=== PATIENT | female | born 2000 | race Caucasian/White ===

== ENCOUNTER 2021-04-08 18:41 | Inpatient (IN) | payer OTHER ==
[2021-04-08] VITALS (13 sets, daily range): BP systolic 105–146; BP diastolic 57–105; PULSE 97–126; TEMP 98.1
[~2021-04-08] VITALS: Ht 165.1 cm; Wt 93.6 kg
[2021-04-08] MEDS ORDERED: SINGULAIR 110 MG/TAB (19:02)
[2021-04-08] MEDS ORDERED: PRENATAL MVI (19:03)
--- NOTE | 2021-04-08 19:15 | NUR ---
G1 at 39.5 weeks gestation to LDR6 with c/o contractions throughout the day that have gotten stronger and closer together and SROM of clear fluid at 1845. She states that was she seen in the office today around 1300 and was dilated 2 cm. She reports good movement. Denies vaginal bleeding. GBS is negative. Patient changed into gown and wedged to left side in bed. EFMs explained and applied. FHR 130 bpm and reactive. CTX q1.5-3 minutes, patient tense and breathing through them. SVE 9/100/+1. Dr. Hancock on unit and updated.
--- NOTE | 2021-04-08 19:32 | NUR ---
1921 Dr. Hancock to room, FHR tracing reviewed, plan of care discussed. SVE complete/+2. 1924 EZE Roth to room to place epidural, patient sits upright on the edge of the bed for procedure. FHR difficult to monitor in this position and traces maternal HR as it coorelates with maternal spO2 tracing. 1931 Single shot by EZE Roth. See anesthesia record for details of epidural placement.
--- NOTE | 2021-04-08 21:15 | NUR ---
2041- DR. BOBBY IN ROOM TO EVALUATE PUSHING. 2043- PITOCIN STARTED AT 2MU PER DR. BOBBY. DR. BOBBY OUT OF ROOM, PT TO CONINTUE PUSHING WITH THIS NURSE. 2058- DR. BOBBY IN ROOM FOR DELIVERY. 2101- SPONTANEOUS VAGINAL DELIVERY OF VIABLE BABY GIRL OVER 2ND DEGREE LACERATION, THROUGH LOOSE NUCHAL CORD. BABY TO MOTHER'S CHEST, CORD CLAMPED BY DR. BOBBY, CUT BY FOB. BABY CARES ASSUMED BY Mey MURRAY RN. 2106- SPONTANEOUS DELIVERY OF INTACT PLACENTA. PITOCIN STARTED AT 333ML/HR PER PROTOCOL. DR. BOBBY BEGINS REPAIR OF 2ND DEGREE LACERATION. 2113- RED LUCIA TO EMPTY BLADDER BY DR. BOBBY, 300MLS URINE OUT. 2114- RECOVERY STARTED.
[2021-04-08 21:56] LABS: HEMATOCRIT 39.9 % (37.0-47.0); HEMOGLOBIN 13.5 g/dl (12.5-16.0); MEAN CELL VOLUME 86 fl (80.0-100.0); MEAN CORPUSCULAR HEMOGLOBIN 29 pg (27.0-31.0); MEAN CORPUSCULAR HGB CONC 34 g/dl (33.0-37.0); MEAN PLATELET VOLUME 11.9 fl (7.4-10.4); PLATELET COUNT 275 K/mm3 (130-400); RED BLOOD COUNT 4.62 M/mm3 (4.10-5.30); REDCELL DISTRIBUTION WIDTH-CV 12.5 % (11.5-14.5)
[2021-04-08 22:28] LABS: BAND 2 % (0-10); LYMPHOCYTE 4 % (20.0-51.0); NEUTROPHILS 92 % (42.0-75.2); PLATELET ESTIMATE NORMAL (NORMAL)
[2021-04-09 02:15] VITALS: BP 129/83; PULSE 90; TEMP 98.2
[2021-04-09 07:45] VITALS: BP 115/72; PULSE 89; TEMP 98.6
[2021-04-09 12:10] VITALS: BP 109/64; PULSE 85; TEMP 98.5
[2021-04-09 17:10] VITALS: BP 115/75; PULSE 74; TEMP 98
[2021-04-09 20:15] VITALS: BP 108/58; PULSE 86; TEMP 97.8
--- NOTE | 2021-04-10 06:30 | NUR ---
0630- REPORT RECIEVED 0700- INTO PT ROOM TO INTRODUCE SELF AND UPDATE WHITEBOARD. REVIEWED PLAN OF CARE FOR THE DAY. MOM AND DAD IN BED, BABY SLEEPING IN CRIB. NO QUESTIONS AT THIS TIME. WILL CONTINUE TO MONITOR.
[2021-04-10 07:00] VITALS: BP 106/64; PULSE 65; TEMP 97.5
[2021-04-10] MEDS ORDERED: IBU800 M1 PO (07:58)
== END 2021-04-10 12:40 | disposition home or self-care (01) | DRG 807 ==
LOC: LDRO 18:41 → OB 19:26 → LDR 19:26 → OB 04-09 09:34
PROVIDERS: Student in an Organized Health Care Education/Training Program; ADMIT Obstetrics & Gynecology
PROC: 10E0XZZ Delivery of Products of Conception, External Approach (ICD-10-PCS; principal; 2021-04-08)
PROC: 0KQM0ZZ Repair Perineum Muscle, Open Approach (ICD-10-PCS; 2021-04-08)
DX: O70.1 Second degree perineal laceration during delivery (principal); Z37.0 Single live birth; Z3A.39 39 weeks gestation of pregnancy
CPT/HCPCS: J2590; J7120

== ENCOUNTER 2022-02-10 07:29 | Outpatient (CLI) | payer OTHER ==
[~2022-02-10] VITALS: Ht 167.6 cm; Wt 87.7 kg
[~2022-02-10 07:29] MED LIST: IBU800 M1 PO; PRENATAL MVI; SINGULAIR 110 MG/TAB
[2022-02-10] MEDS ORDERED: VITAMIN D31000 I1 PO (07:47)
[2022-02-10 07:51] VITALS: BP 121/75; PULSE 81; TEMP 98.1
[2022-02-10 08:17] LABS: HEMATOCRIT 40.6 % (37.0-47.0); HEMOGLOBIN 13.5 g/dl (12.5-16.0); MEAN CELL VOLUME 88 fl (80.0-100.0); MEAN CORPUSCULAR HEMOGLOBIN 29 pg (27-31); MEAN CORPUSCULAR HGB CONC 33 g/dl (33.0-37.0); MEAN PLATELET VOLUME 10.8 fl (7.4-10.4); PLATELET COUNT 299 K/mm3 (130-400); REDCELL DISTRIBUTION WIDTH-CV 12.8 % (11.5-14.5)
[2022-02-10 08:20] LABS: PROTHROMBIN TIME 11.7 SECONDS (9.7-12.8)
[2022-02-10 08:30] LABS: CALCIUM 8.7 mg/dL (8.4-10.2); CREATININE, serum 0.7 mg/dL (0.57-1.11); POTASSIUM 4.7 mmol/L (3.5-4.5)
[2022-02-10 10:00] VITALS: BP 106/69; PULSE 71
--- NOTE | 2022-02-10 10:00 | NUR ---
RECIEVED REPORT FROM ANAT BOLIVAR, PT IS AWAKE AND ALERT, IN ROOM, DR MELENDEZ SPOKE WITH THEM, PT HAS NO C/O, CALL LIGHT IN REACH, REQUESTS WATER ONLY
[2022-02-10 10:15] VITALS: BP 107/68; PULSE 71
--- NOTE | 2022-02-10 10:15 | NUR ---
PT UP IN ROOM DRESSED, IV DC'D INTACT.
[2022-02-10 10:30] VITALS: BP 108/69; PULSE 72
--- NOTE | 2022-02-10 10:45 | NUR ---
REVIEWED DISCHARGE INST. WITH PT ON MODERATE SEDATION, PRECAUTIONS, FOLLOWUP APPT WITH DR MELENDEZ, NO NEW MED CHANGES. VERBAL UNDERSTANDING. PT DISCHARGED AMB. WITH WITH STAFF TO CAR AT 1050
== END 2022-02-10 11:15 | disposition home or self-care (01) ==
LOC: COL.RAD 07:29
PROVIDERS: Internal Medicine Cardiovascular Disease
DX: I51.7 Cardiomegaly (principal)
CPT/HCPCS: J2704